=== PATIENT | male | born 1950 | race Caucasian/White ===

== ENCOUNTER 2019-09-03 07:59 | Inpatient (IN) | payer MEDICARE, MEDICAID ==
[~2019-09-03] VITALS: Ht 167.6 cm; Wt 62.0 kg
[~2019-09-03 07:59] MED LIST: ALB0.5UD NEB; LISI-222 PO; OMEP-84 PO; PHEN100C4 PO; ZOLP5TAB8 PO; pneumococcal 23-VAL P-sac vacc 25 mcg/0.5ml vial IMVAC ONE
[2019-09-03 09:02] LABS: BASOPHILS % (AUTO) 0.5 % (0-1); EOSINOPHILS # (AUTO) 0.2 X10'3 (0-0.9); EOSINOPHILS % (AUTO) 2.6 % (0-6); HEMATOCRIT 40.5 % (42.0-52.0); HEMOGLOBIN 13.9 g/dl (14.0-17.9); LYMPHOCYTES # (AUTO) 1.7 X10'3 (1.1-4.8); LYMPHOCYTES % (AUTO) 26.5 % (21-51); MEAN CORPUSCULAR HGB CONC 34.2 g/dL (33.0-36.5); MEAN CORPUSCULAR VOLUME 90.7 FL (78-98); MEAN PLATELET VOLUME 7.5 FL (7.4-10.4); MONOCYTES # (AUTO) 0.6 X10'3 (0-0.9); MONOCYTES % (AUTO) 8.9 % (2-12); NEUTROPHILS # (AUTO) 3.9 X10'3 (1.8-7.7); NEUTROPHILS % (AUTO) 61.5 % (42-75); PLATELET COUNT 254 X10'3 (140-440); RED BLOOD COUNT 4.47 X10'6 (4.70-6.10); RED CELL DISTRIBUTION WIDTH 13.6 % (11.5-14.5); WHITE BLOOD COUNT 6.3 X10'3 (4.5-11.0)
[2019-09-03 09:13] LABS: ALANINE AMINOTRANSFERASE 24 U/L (12-78); ALBUMIN 4.1 G/DL (3.4-5.0); ALKALINE PHOSPHATASE 89 IU/L (46-116); ANION GAP 8 (8-16); ASPARTATE AMINO TRANSFERASE 20 U/L (10-37); BILIRUBIN,TOTAL 0.7 MG/DL (0.1-1.0); BLOOD UREA NITROGEN 19 MG/DL (7-18); BUN/CREATININE RATIO 24.4 (5.4-32.0); CALCIUM 9.7 MG/DL (8.5-10.1); CHLORIDE 106 MMOL/L (99-107); CREATININE 0.78 MG/DL (0.60-1.10); GLUCOSE 115 MG/DL (70-104); POTASSIUM 3.8 MMOL/L (3.5-5.1); SODIUM 143 MMOL/L (135-145); TOTAL CARBON DIOXIDE 29.2 MMOL/L (24-32); TOTAL PROTEIN 8.1 G/DL (6.4-8.2); eGFR > 90 ML/MIN
[2019-09-03] MEDS ORDERED: nitroGLYCERIN 0.4mg SUBLingual tab SL PRN ×3 (10:05→21:30)
[2019-09-03] MEDS ORDERED: ALBU8.5H8 IH (10:13)
[2019-09-03] MEDS ORDERED: ATOR20TA66 PO (10:14)
[2019-09-03] MEDS ORDERED: OMEP-297 PO (10:14)
[2019-09-03] MEDS ORDERED: ASPI81TA52 PO (10:15)
[2019-09-03] MEDS ORDERED: MELO-102 PO (10:16)
[2019-09-03 10:46] LABS: CLARITY,URINE CLEAR (Clear); COLOR,URINE YELLOW (Yellow); GLUCOSE, URINE NEGATIVE (Neg); KETONES,URINE NEGATIVE (Neg); LEUKOCYTE ESTERASE ,URINE NEGATIVE (Neg); NITRITES, URINE NEGATIVE (Neg); OCCULT BLOOD,URINE TRACE-INTACT (Neg); PROTEIN,URINE NEGATIVE (Neg); UROBILINOGEN,URINE 0.2 E.U/dL (0.2-1.0)
[2019-09-03 10:47] LABS: UA COLLECTION TYPE URINAL
[2019-09-03 10:51] LABS: BACTERIA,URINE FEW /HPF (Neg); RBC,URINE 0-2 /HPF (0-2); SQUAMOUS EPITHELIAL CELL,UR FEW /LPF (FEW); WBC,URINE 0-4 /HPF (0-4)
[2019-09-03 10:56] LABS: PARTIAL THROMBOPLASTIN TIME 29 SECONDS (22-32)
[2019-09-03] MEDS ORDERED: HYDROcodone/acetaminophen 5mg/325mg tablet PO PRN (11:20)
[2019-09-03] MEDS ORDERED: magnesium 4gm in 100ml NS 100 ML IV PRN (11:20)
[2019-09-03] MEDS ORDERED: morphine 2 MG/ML inj. syringe IV PRN ×2 (11:20)
[2019-09-03] MEDS ORDERED: ondansetron/PF 4mg/2ml inj IV PRN (11:20)
[2019-09-03] MEDS ORDERED: potassium CL 10mEq/100ml bag 100 ML IV PRN ×2 (11:20)
[2019-09-03] MEDS ORDERED: potassium Cl 20 mEq SR tablet PO PRN ×2 (11:20)
[2019-09-03] MEDS ORDERED: acetaminophen 325mg tablet PO PRN (11:20)
[2019-09-03] MEDS ORDERED: magnesium hydroxide 30ml (MOM) UD suspension PO PRN (11:20)
[2019-09-03] MEDS ORDERED: magnesium Cl slow-release 64mg tablet PO PRN (11:20)
[2019-09-03] MEDS ORDERED: magnesium 2GM in 50ml NS 50 ML IV PRN (11:20)
[2019-09-03] MEDS ORDERED: mag hydrox/Alum hydrox/simeth 30ml oral suspension PO PRN (11:20)
--- NOTE | 2019-09-03 12:03 | NUR ---
attempted to call report
--- NOTE | 2019-09-03 12:34 | NUR ---
Patient arrived to room 307 on [facility] at this time.
[2019-09-03 12:49] VITALS: BP 163/80
[2019-09-03] MEDS: K and/or MAG REPLACEMENT MC SCH (13:30)
--- NOTE | 2019-09-03 14:13 | NUR ---
Paged hospitalist, "Alicia [phone]- January Romeo Sanchez?"
--- NOTE | 2019-09-03 14:15 | NUR ---
Patient states relief with recent Nitro given, denies pain.
--- NOTE | 2019-09-03 14:37 | NUR ---
Received call from Dr. Albarran, to feed patient and make NPO after midnoc.
[2019-09-03 15:30] VITALS: BP 167/75
--- NOTE | 2019-09-03 15:58 | NUR ---
Paged hospitalist, "Alicia [phone]- would you like to add BP med for Romeo Sanchez in 307 for SBP 160's?" awaiting callback.
[2019-09-03] MEDS ORDERED: hydrALAZINE 20mg/ml inj. IV PRN (16:05)
--- NOTE | 2019-09-03 16:52 | NUR ---
Rechecked patient's BP, noted 158/88 with HR 69.
[2019-09-03 16:53] VITALS: BP 158/88
[2019-09-03 18:00] VITALS: BP 172/83
--- NOTE | 2019-09-03 18:10 | NUR ---
Problems reprioritized. Patient report given, questions answered & plan of care reviewed with Jj MCKENZIE.
[2019-09-03] MEDS ORDERED: metoprolol tartrate 12.5mg (1/2 tablet) PO SCH (20:00)
[2019-09-03] MEDS ORDERED: regadenoson 0.4mg/5ml syringe IV PRN (21:30)
[2019-09-03] MEDS ORDERED: aminophylline 250mg/10ml inj. IV PRN (21:30)
[2019-09-03] MEDS ORDERED: metoprolol tartrate 1mg/ml inj IV PRN (21:30)
[2019-09-03 22:00] VITALS: BP 136/84
[2019-09-04] VITALS (11 sets, daily range): BP systolic 103–161; BP diastolic 61–82
[2019-09-04 03:48] LABS: BASOPHILS % (AUTO) 0.3 % (0-1); EOSINOPHILS # (AUTO) 0.2 X10'3 (0-0.9); EOSINOPHILS % (AUTO) 2.1 % (0-6); HEMATOCRIT 39.2 % (42.0-52.0); HEMOGLOBIN 13.5 g/dl (14.0-17.9); LYMPHOCYTES % (AUTO) 20.8 % (21-51); MEAN CORPUSCULAR HEMOGLOBIN 30.9 PG (27.0-31.0); MEAN CORPUSCULAR HGB CONC 34.4 g/dL (33.0-36.5); MEAN PLATELET VOLUME 7.5 FL (7.4-10.4); MONOCYTES % (AUTO) 10.6 % (2-12); NEUTROPHILS # (AUTO) 6.3 X10'3 (1.8-7.7); NEUTROPHILS % (AUTO) 66.2 % (42-75); PLATELET COUNT 237 X10'3 (140-440); RED BLOOD COUNT 4.36 X10'6 (4.70-6.10); RED CELL DISTRIBUTION WIDTH 13.6 % (11.5-14.5); WHITE BLOOD COUNT 9.5 X10'3 (4.5-11.0)
[2019-09-04 03:55] LABS: ALBUMIN 3.8 G/DL (3.4-5.0); ANION GAP 7 (8-16); BLOOD UREA NITROGEN 23 MG/DL (7-18); BUN/CREATININE RATIO 29.1 (5.4-32.0); CALCIUM 9.9 MG/DL (8.5-10.1); CHLORIDE 107 MMOL/L (99-107); CREATININE 0.79 MG/DL (0.60-1.10); GLUCOSE 106 MG/DL (70-104); MAGNESIUM 1.9 MG/DL (1.5-2.4); POTASSIUM 3.8 MMOL/L (3.5-5.1); SODIUM 143 MMOL/L (135-145); TOTAL CARBON DIOXIDE 29.4 MMOL/L (24-32); eGFR > 90 ML/MIN
--- NOTE | 2019-09-04 06:29 | NUR ---
Problems reprioritized. Patient report givento Moo, questions answered & plan of care reviewed with .
--- NOTE | 2019-09-04 06:34 | NUR ---
Patient in room MED 307. I have received report from JONAH Gardner and had the opportunity to ask questions and assume patient care.
[2019-09-04] MEDS ORDERED: enoxaparin 40mg/0.4ml syringe SQ SCH (08:00)
[2019-09-04] MEDS ORDERED: aspirin 81mg tablet.DR PO SCH (08:00)
[2019-09-04] MEDS ORDERED: pantoprazole 40mg Tablet.DR PO SCH (08:00)
[2019-09-04] MEDS ORDERED: atorvastatin 20mg tablet PO SCH (08:00)
[2019-09-04] MEDS: K and/or MAG REPLACEMENT MC SCH (08:00)
[2019-09-04] MEDS ORDERED: pneumococcal 23-VAL P-sac vacc 25 mcg/0.5ml vial IMVAC ONE (11:55)
[2019-09-04] MEDS ORDERED: albuterol 2.5 MG/3 ML nebule NEB PRN (14:25)
[2019-09-04] MEDS ORDERED: METO25TA6 PO (14:34)
[2019-09-04] MEDS ORDERED: NITR0.4T51 SL (14:34)
[2019-09-04] MEDS ORDERED: ASPI-1264 PO (14:34)
--- NOTE | 2019-09-04 16:05 | NUR ---
Phoned patient's prescriptions to preferred pharmacy, [facility] in [place], [place], phone number [phone].
--- NOTE | 2019-09-04 18:33 | NUR ---
Reviewed all discharge instructions with pt.and ,medications and need for f/u appts,SL dc'd from right wrist,site clear pt dc'd home with all belongings
[2019-09-05] MEDS ORDERED: Meloxicam 15 MG TAB PO SCH (08:00)
== END 2019-09-04 17:00 | disposition home or self-care (01) | DRG 311 ==
LOC: ER 07:59 → ED HOLD 11:16 → EDBEDREQ 11:53 → MED 3N 12:35
PROVIDERS: ADMIT Hospitalist; ATTEND Hospitalist
PROC: 4A02XM4 Measurement of Cardiac Total Activity, External Approach (ICD-10-PCS; principal; 2019-09-04)
PROC: 3E033HZ Introduction of Radioactive Substance into Peripheral Vein, Percutaneous Approach (ICD-10-PCS; 2019-09-04)
PROC: 3E0234Z Introduction of Serum, Toxoid and Vaccine into Muscle, Percutaneous Approach (ICD-10-PCS; 2019-09-04)
DX: I20.9 Angina pectoris, unspecified (principal); E11.51 Type 2 diabetes mellitus with diabetic peripheral angiopathy without gangrene; E78.00 Pure hypercholesterolemia, unspecified; E78.5 Hyperlipidemia, unspecified; F17.200 Nicotine dependence, unspecified, uncomplicated; I10 Essential (primary) hypertension; R94.39 Abnormal result of other cardiovascular function study; I16.0 Hypertensive urgency; J44.9 Chronic obstructive pulmonary disease, unspecified; Z79.82 Long term (current) use of aspirin; Z86.73 Personal history of transient ischemic attack (TIA), and cerebral infarction without residual deficits; Z23 Encounter for immunization; Z86.718 Personal history of other venous thrombosis and embolism; Z79.899 Other long term (current) drug therapy
CPT/HCPCS: 36415; 71045; 78452; 80048; 80053; 81001; 82948; 83735; 84484; 85025; 85610; 85730; 87081; 90732; 93005; 93017; 99285; A9500; G0378; J1650; J2785

== ENCOUNTER 2020-03-27 05:24 | Day surgery (SDC) | payer MEDICARE, MEDICAID ==
[2020-03-19 10:45] LABS: BASOPHILS % (AUTO) 0.7 % (0-1); EOSINOPHILS # (AUTO) 0.1 X10'3 (0-0.9); EOSINOPHILS % (AUTO) 2.4 % (0-6); LYMPHOCYTES # (AUTO) 1.9 X10'3 (1.1-4.8); LYMPHOCYTES % (AUTO) 30.7 % (21-51); MEAN CORPUSCULAR HEMOGLOBIN 30.4 PG (27.0-31.0); MEAN CORPUSCULAR HGB CONC 33.1 g/dL (33.0-36.5); MEAN CORPUSCULAR VOLUME 91.9 FL (78-98); MEAN PLATELET VOLUME 7.5 FL (7.4-10.4); MONOCYTES # (AUTO) 0.7 X10'3 (0-0.9); MONOCYTES % (AUTO) 10.9 % (2-12); NEUTROPHILS # (AUTO) 3.4 X10'3 (1.8-7.7); NEUTROPHILS % (AUTO) 55.3 % (42-75); PRE OP HEMOGLOBIN 13.9 g/dL (14.0-17.9); PRE OP PLATELET COUNT 224 X10'3 (140-440); RED BLOOD COUNT 4.57 X10'6 (4.70-6.10); RED CELL DISTRIBUTION WIDTH 14.3 % (11.5-14.5)
[2020-03-19 10:54] LABS: PRE OP INR 1.1 INR; PRE OP PROTIME 11.1 SECONDS (9.0-12.0)
[2020-03-19 10:58] LABS: ALBUMIN 3.8 G/DL (3.4-5.0); ALKALINE PHOSPHATASE 69 IU/L (46-116); BLOOD UREA NITROGEN 17 MG/DL (7-18); BUN/CREATININE RATIO 22.1 (5.4-32.0); CHLORIDE 106 MMOL/L (99-107); CREATININE 0.77 MG/DL (0.60-1.10); PRE OP ALT 24 U/L (30-65); PRE OP ANION GAP 7 (8-16); PRE OP AST 25 U/L (10-37); PRE OP BILIRUB, TOTAL 0.7 MG/DL (0.0-1.0); PRE OP GLUCOSE 97 MG/DL (70-104); PRE OP POTASSIUM 4.2 MMOL/L (3.4-5.1); PRE OP SODIUM 140 MMOL/L (135-145); TOTAL CARBON DIOXIDE 27.3 MMOL/L (24-32); TOTAL PROTEIN 7.7 G/DL (6.4-8.2); eGFR > 90 ML/MIN
[~2020-03-27] VITALS: Ht 167.6 cm; Wt 60.9 kg
[2020-03-27] VITALS (7 sets, daily range): BP systolic 55–193; BP diastolic 69–104
[~2020-03-27 05:24] MED LIST changes: -ALB0.5UD NEB; +ALBU8.5H8 IH; +ATOR20TA66 PO; -LISI-222 PO; -PHEN100C4 PO; -ZOLP5TAB8 PO; -pneumococcal 23-VAL P-sac vacc 25 mcg/0.5ml vial IMVAC ONE; +ringers solution, lacted 1,000 ML IV SCH
[2020-03-27] MEDS ORDERED: albuterol 2.5 MG/3 ML nebule NEB ONE (05:30)
[2020-03-27] MEDS ORDERED: ceFAZolin 2gm in dextrose, iso 50 ML IV ONE (05:30)
[2020-03-27] MEDS ORDERED: famotidine 20mg tablet PO ONE (05:30)
[2020-03-27] MEDS ORDERED: BUPIVAcaine/PF 2.5mg/ml (0.25%) 10ml vial ONE (06:33)
[2020-03-27] MEDS ORDERED: BUPIVAcaine/PF 2.5 mg/ml (0.25%) 30ml vial ONE (06:35)
[2020-03-27] MEDS ORDERED: LIDOcaine 1% 30ml preserv. free vial ONE (07:13)
[2020-03-27] MEDS ORDERED: fentaNYL/PF 50MCG/1 ML 2ML syringe ONE (07:15)
[2020-03-27] MEDS ORDERED: MIDAZolam 5mg/5ml vial ONE (07:16)
[2020-03-27] MEDS ORDERED: ketorolac trometh. 30mg/ml inj. ONE (07:17)
[2020-03-27] MEDS ORDERED: BUPIVAcaine/PF 2.5 mg/ml (0.25%) 30ml vial IJ ONE (07:42)
[2020-03-27] MEDS ORDERED: ringers solution, lacted 1,000 ML IV SCH (07:43)
[2020-03-27] MEDS ORDERED: morphine 4 MG/ML inj SYRINge IV PRN (07:45)
[2020-03-27] MEDS ORDERED: meperidine/PF 25mg/ml syringe IV PRN ×3 (07:45)
[2020-03-27] MEDS ORDERED: morphine 2 MG/ML inj. syringe IV PRN (07:45)
[2020-03-27] MEDS ORDERED: ondansetron/PF 4mg/2ml inj IV PRN (07:45)
[2020-03-27] MEDS ORDERED: proCHLORperazine 10 MG/2 ml inj IV PRN (07:45)
[2020-03-27] MEDS ORDERED: propofol inj 20 ML IV ONE (08:02)
[2020-03-27] MEDS ORDERED: LIDOcaine 2% (20mg/ml) 5ml vial ONE (08:02)
--- NOTE | 2020-03-27 08:11 | NUR ---
Received from OR via [facility] , accompanied by Anesthesiologist GURPREET and report given by Anesthesiolgist. PATIENT WITH SPLINT TO LEFT UE, DENIES PAIN. + CAP REFILL AND MOVEMENT. GLASSES DONNED. 20G PIV IN RIGHT HAND RUNNING LR AT 100. Addendum: 03/27/20 at 0824 by Santy Dennison RN, RN Amended: Links added.
[2020-03-27] MEDS ORDERED: labetalol 20mg/4ml (5mg/ml) syringe IV ONE (08:30)
[2020-03-27] MEDS: labetalol 20mg/4ml (5mg/ml) syringe IV PRN ×2 (08:36→08:53)
--- NOTE | 2020-03-27 09:11 | NUR ---
I HAVE REVIEWED D/C INSTRUCTIONS WITH PATIENT AND FAMILY AND THEY HAVE VERBALIZED UNDERSTANDING. PATIENT D/C HOME WITH ALL BELONGINGS AND FAMILY GAVE TRANSPORT HOME. INSTRUCTED ON PATIENT TAKING HIS BLOOD PRESSURE MEDICATIONS WELL HIS CHOLESTEROL MEDICATION, ELEVATING LEFT UE ABOVE HEART AND WIGGLING FINGERS WELL DC INSTRUCTIONS. Addendum: 03/27/20 at 0921 by Santy Dennison RN, RN Amended: Links added.
== END 2020-03-27 09:11 | disposition home or self-care (01) ==
LOC: PAS 05:24
PROVIDERS: ATTEND Orthopaedic Surgery Hand Surgery
DX: M18.12 Unilateral primary osteoarthritis of first carpometacarpal joint, left hand (principal); J44.9 Chronic obstructive pulmonary disease, unspecified; K21.9 Gastro-esophageal reflux disease without esophagitis; G40.409 Other generalized epilepsy and epileptic syndromes, not intractable, without status epilepticus; F17.210 Nicotine dependence, cigarettes, uncomplicated; Z86.19 Personal history of other infectious and parasitic diseases; Z86.73 Personal history of transient ischemic attack (TIA), and cerebral infarction without residual deficits; Z98.890 Other specified postprocedural states; Z86.14 Personal history of Methicillin resistant Staphylococcus aureus infection; Z11.59 Encounter for screening for other viral diseases; Z79.899 Other long term (current) drug therapy; Z79.01 Long term (current) use of anticoagulants
CPT/HCPCS: 25310; 25447; 36415; 71046; 80053; 82948; 85025; 85610; 85730; J1885; J2001; J2250; J2704; J3010; J3490; J7120; U0003; A4215; A4618